=== PATIENT | female | born 1985 | race Caucasian/White ===

== ENCOUNTER 2016-06-25 22:48 | Emergency (ER) | payer MEDICAID ==
[~2016-06-25] VITALS: Ht 177.8 cm; Wt 61.2 kg
[2016-06-25] MEDS ORDERED: VENTOLIN HFA18 GM INH (23:49)
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
[2016-06-26] MEDS ORDERED: Albuterol ud Inhalation HHN ONE
[2016-06-26 00:45] VITALS: BP 107/73
== END 2016-06-26 00:45 | disposition home or self-care (01) ==
LOC: EMR 23:19
DX: R06.02 Shortness of breath (principal); R06.00 Dyspnea, unspecified; Z88.5 Allergy status to narcotic agent
CPT/HCPCS: 94640; 94664; 99283